=== PATIENT | female | born 1960 | race Caucasian/White ===

== ENCOUNTER 2016-03-10 14:16 | Inpatient (IN) | payer BC, OTHER ==
[~2016-03-10] VITALS: Ht 167.6 cm; Wt 82.2 kg
[~2016-03-10 14:16] MED LIST: ADVAIR HFA120 INHALA IH; AMBIEN CR12.5 MG PO; ANTIFUNGAL15 G1 TP; ASPIR 8181 M1 PO; ASPIR-LOW81 MG PO; AZITHROMYCIN250 MG1 PO; BENTYL10 MG PO; BUPROPION XL150 MG PO; CEFUROXIME500 MG PO; CENTRUM SILVER1 EAC4 PO; CLINDAMYCIN PHO60 GM TP; CLONAZEPAM1 MG PO; COCONUT OIL1000 MG PO; CRESTOR10 MG PO; CRESTOR40 MG PO; CYMBALTA20 MG PO; CYMBALTA60 MG PO; DESYREL100 MG PO; DEXILANT; DEXILANT60 MG PO; DILAUDID2 MG PO; DULCOLAX5 MG PO; DULOXETINE HCL; ECONAZOLE NITRA15 GM TP; ENDOCET 5-3251 EACH PO; ENSTILAR 0.005%60 GM TP; FLEXERIL5 MG PO; FLUCONAZOLE150 MG PO; FUROSEMIDE20 MG PO; GABAPENTIN600 MG PO; GLIPIZIDE ER2.5 M1 PO; GLIPIZIDE5 M1 PO; GLUCOPHAGE1000 MG PO; HUMALOG100 UNIT/2 SC; HYDROCODON-ACE1 EAC7 PO; INSULIN PUMP SCCONT; KAPIDEX60 MG PO; KENALOG,ARISTOC80 GM TP; KLONOPIN1 MG PO; LAMICTAL100 MG PO; LAMICTAL200 MG PO; LANTUS 3 M100 UNITS1 SC; LANTUS100 UNIT/1 SQ; LEVAQUIN750 MG PO; LINZESS145 MCG PO; LO-DOSE ASPIRIN81 M1 PO; LO-DOSE ASPIRIN81 M2 PO; LORCET PLUS 7.1 EACH PO; LUNESTA3 MG PO; LYRICA; LYRICA100 MG PO; LYRICA50 MG PO; MAGNESIUM400 M1 PO; MECLIZINE HCL25 MG PO; MEGESTROL ACETATE; METFORMIN HCL1000 MG PO; METOCLOPRAMIDE10 MG PO; METOPROLOL SUCC25 MG PO; METOPROLOL SUCC50 MG PO; MIRAPEX0.25 MG PO; MIRAPEX0.5 MG PO; MOBIC15 MG PO; MOBIC7.5 MG PO; MORPHINE SULFAT15 M1 PO; MORPHINE SULFAT15 MG PO; NABUMETONE500 MG PO; NEURONTIN300 MG PO; NEURONTIN600 MG PO; NOVOLOG PE100 UNITS/ SC; NOVOLOG100 UNIT/1 SQ; NUCYNTA75 MG PO; OMEGA-31000 M1 PO; OTEZLA30 MG PO; PERCOCET 5/31 TABLET PO; PRAMIPEXOLE D0.25 MG PO; PREDNISONE10 MG PO; REGLAN10 M1 PO; TIZANIDINE HCL; TIZANIDINE HCL2 MG PO; TOPROL XL50 MG PO; TRAZODONE HCL50 MG PO; TYLENOL REGULA325 MG PO; VENTOLIN HFA18 GM IH; VITAMIN B-12500 MC5 SL; VITAMIN D2000 UNIT PO; XANAX0.25 MG PO; XANAX1 MG PO; ZANAFLEX4 MG PO; ZESTORETIC,P1 TABLE1 PO; ZOFRAN4 MG PO; Zestoretic,Prinzide PO
[2016-03-10 14:40] LABS: CREATININE 0.7 mg/dL (0.6-1.3); POTASSIUM 4.6 mEq/L (3.7-5.4)
[2016-03-10 14:41] LABS: CARBOXY HGB 0.9 % (0-5); METHEMOGLOBIN 0.9 % (0-1.5); PCO2 19 mm Hg (35-45); PO2 92 mm Hg (80-100); SITE LR; pH < 6.91 (7.35-7.45)
[2016-03-10 14:42] LABS: COMMENTS - BLOOD GASES A+C+; DEVICE RA
[2016-03-10 14:48] LABS: MCHC 34.5 G/DL (30.0-36.0); MEAN PLAT.VOLUME 9.9 uM^3 (9.5-12.4); RBC DIS.WIDTH-CV 16.3 % (11.8-14.6); RBC DIS.WIDTH-SD 44.4 % (39-53); RED BLOOD COUNT 4.92 M/uL (3.80-5.20)
[2016-03-10 15:09] LABS: TROP-I INTERPRETATION NEGATIVE; TROPONIN-I 0.07 ng/mL (0.0-0.30)
[2016-03-10 15:41] LABS: MCV 81.3 FL (83-99); WHITE BLOOD COUNT 29.6 K/uL (4.1-10.2)
[2016-03-10 15:55] LABS: ABS NEUTROPHIL COUNT 25.12; ANISOCYTOSIS 1+; PLAT.SUFFICIENCY INCREASED; TOXIC GRANULATION 1+; USER ID NJV
[2016-03-10 15:57] LABS: DELETE MACHINE DIFF? YES; PLATELET CLUMPS PRESENT - PLATELET
[2016-03-10 16:04] LABS: CHLORIDE 105 mEq/L (99-109); POTASSIUM 4.7 mEq/L (3.7-5.4); SODIUM 132 mEq/L (136-147)
[2016-03-10 16:08] LABS: ANION GAP 23 MEQ/L (2-14); TOTAL BILIRUBIN 0.4 mg/dL (0.0-1.0)
[2016-03-10 16:10] LABS: ALKALINE PHOSPHATASE 205 IU/L (3-129); GFR ESTIMATE (CALCULATED) 39 mL/min/
[2016-03-10 16:11] LABS: UREA NITROGEN (BUN) 24 mg/dL (9-23)
[2016-03-10 16:13] LABS: LIPASE 38 U/L (1.0-51.0)
[2016-03-10 16:14] LABS: CREATINE KINASE 201 IU/L (1-294)
[2016-03-10 16:16] LABS: GLUCOSE 429 mg/dL (70-99)
[2016-03-10 16:17] LABS: CARBON DIOXIDE (BICARBONATE) < 10.0 mEq/L (20-31)
[2016-03-10 16:26] LABS: ADD MIUA? YES; BILIRUBIN SMALL; BLOOD LARGE; COLOR YELLOW ((YELLOW)); GLUCOSE (STRIP) >=1000; KETONES >=80; LEUKOCYTES SMALL; NITRITE NEGATIVE; PH, URINE 5.5 (5-8); PROTEIN (STRIP) 100; SPECIFIC GRAVITY 1.031 (1.000-1.030); UROBILINOGEN 0.2 MG/DL (0.2-1.0)
[2016-03-10] MEDS ORDERED: LUNESTA2 MG PO (16:50)
[2016-03-10] MEDS ORDERED: CLONAZEPAM0.5 MG PO (16:50)
[2016-03-10] MEDS ORDERED: OPANA ER10 MG PO (16:50)
[2016-03-10] MEDS ORDERED: OPANA IR5 MG PO (16:50)
[2016-03-10] MEDS ORDERED: OPANA IR10 MG PO (16:51)
[2016-03-10 16:52] LABS: BACTERIA 2+; EPITHELIAL CELLS 3+; MUCUS NONE SEEN; UCUL ADDED? YES; WHITE BLOOD CELLS 20-30 /HPF (0-5)
[2016-03-10 16:53] LABS: CASTS PRESENT /LPF; CRYSTALS NONE SEEN; FINE GRANULAR CASTS 0-5 /LPF; HYALINE CASTS 0-5 /LPF
[2016-03-10 17:33] LABS: POINT-OF-CARE METER ID UU13113702
[2016-03-10 18:28] LABS: POINT-OF-CARE METER ID UU13113702
[2016-03-10 19:30] VITALS: BP 124/63
[2016-03-10 19:30] LABS: POINT-OF-CARE METER ID UU13113702
[2016-03-10 20:00] VITALS: BP 127/65
[2016-03-10 20:50] LABS: VENOUS PCO2 38 mm Hg (41-51)
[2016-03-10 21:00] VITALS: BP 109/66
[2016-03-10 22:00] VITALS: BP 124/62
[2016-03-10 23:00] VITALS: BP 125/68
[2016-03-10 23:49] LABS: ANION GAP 19 MEQ/L (2-14)
[2016-03-10 23:52] LABS: GFR ESTIMATE (CALCULATED) 36 mL/min/
[2016-03-10 23:53] LABS: UREA NITROGEN (BUN) 34 mg/dL (9-23)
[2016-03-10 23:54] LABS: CHLORIDE 117 mEq/L (99-109); GLUCOSE 133 mg/dL (70-99); POTASSIUM 3.2 mEq/L (3.7-5.4); SODIUM 144 mEq/L (136-147)
[2016-03-11] VITALS (24 sets, daily range): BP systolic 73–140; BP diastolic 42–77
[2016-03-11 02:14] LABS: BASE EXCESS -13.9 mEq/L (-3 to +3); BICARBONATE 11.8 mEq/L (22-26); CARBOXY HGB 1.4 % (0-5); METHEMOGLOBIN 1.4 % (0-1.5)
[2016-03-11 02:15] LABS: COMMENTS - BLOOD GASES C+; DEVICE NC; O2 FLOW 2 L/MIN; PCO2 27 mm Hg (35-45); PO2 60 mm Hg (80-100); SITE ALINE; pH 7.25 (7.35-7.45)
[2016-03-11 02:23] LABS: HEMATOCRIT 33.8 % (36.0-46.0); MCH 28.1 PG (29.0-34.0); MCHC 36.1 G/DL (30.0-36.0); MCV 77.9 FL (83-99); MEAN PLAT.VOLUME 9.3 uM^3 (9.5-12.4); PLATELET COUNT 304 K/uL (156-360); RBC DIS.WIDTH-CV 15.9 % (11.8-14.6); RBC DIS.WIDTH-SD 41.3 % (39-53); RED BLOOD COUNT 4.34 M/uL (3.80-5.20)
[2016-03-11 02:24] LABS: WHITE BLOOD COUNT 16.5 K/uL (4.1-10.2)
[2016-03-11 02:35] LABS: CHLORIDE 115 mEq/L (99-109); POTASSIUM 3.2 mEq/L (3.7-5.4); SODIUM 143 mEq/L (136-147)
[2016-03-11 02:36] LABS: MAGNESIUM 1.5 mg/dL (1.3-2.7)
[2016-03-11 02:39] LABS: ANION GAP 19 MEQ/L (2-14)
[2016-03-11 02:41] LABS: ALKALINE PHOSPHATASE 167 IU/L (3-129)
[2016-03-11 02:42] LABS: GFR ESTIMATE (CALCULATED) 31 mL/min/
[2016-03-11 02:43] LABS: DIRECT BILIRUBIN 0.3 mg/dL (0.0-0.3); INTER. NORMALIZED RATIO 1.2; PROTHROMBIN TIME 12.1 (9.2-11.2); PTT 32.9 (25-32); UREA NITROGEN (BUN) 36 mg/dL (9-23)
[2016-03-11 02:44] LABS: TROP-I INTERPRETATION POSITIVE
[2016-03-11 02:48] LABS: TROPONIN-I 1.61 ng/mL (0.0-0.30)
[2016-03-11 02:50] LABS: GLUCOSE 221 mg/dL (70-99)
[2016-03-11 02:51] LABS: CREATINE KINASE 506 IU/L (1-294); TOTAL BILIRUBIN 0.5 mg/dL (0.0-1.0)
[2016-03-11 04:56] LABS: COMMENTS - BLOOD GASES C+; DEVICE NC; O2 FLOW 2 L/MIN; PCO2 28 mm Hg (35-45); PO2 83 mm Hg (80-100); SITE ALINE; TOTAL RESP RATE 30 resp/min; pH 7.31 (7.35-7.45)
[2016-03-11 04:57] LABS: BASE EXCESS -10.7 mEq/L (-3 to +3); BICARBONATE 14.1 mEq/L (22-26); CARBOXY HGB 1.5 % (0-5); HEMOGLOBIN 12.3 (11.9-15.5); METHEMOGLOBIN 1.3 % (0-1.5)
[2016-03-11 05:18] LABS: HEMATOCRIT 34.8 % (36.0-46.0); MCH 28.5 PG (29.0-34.0); MCHC 35.6 G/DL (30.0-36.0); MEAN PLAT.VOLUME 9.6 uM^3 (9.5-12.4); PLATELET COUNT 265 K/uL (156-360); RBC DIS.WIDTH-CV 15.8 % (11.8-14.6); RBC DIS.WIDTH-SD 44.1 % (39-53); RED BLOOD COUNT 4.35 M/uL (3.80-5.20); WHITE BLOOD COUNT 13.1 K/uL (4.1-10.2)
[2016-03-11 05:29] LABS: TROP-I INTERPRETATION POSITIVE
[2016-03-11 05:59] LABS: TROPONIN-I 1.66 ng/mL (0.0-0.30)
[2016-03-11 06:39] LABS: ANION GAP 20 MEQ/L (2-14); CHLORIDE 112 MEQ/L (99-109); GFR ESTIMATE (CALCULATED) 33 mL/min/; GLUCOSE 209 mg/dL (70-99); MAGNESIUM 2.3 mg/dl (1.3-2.7); POTASSIUM 3.3 MEQ/L (3.7-5.4); SAMPLE HEMOLYSIS CHECK 0; SAMPLE ICTERIC CHECK 0; SAMPLE LIPEMIA CHECK 0; SODIUM 144 MEQ/L (136-147); UREA NITROGEN (BUN) 38 mg/dL (9-23)
[2016-03-11 10:47] LABS: TROP-I INTERPRETATION POSITIVE
[2016-03-11 10:49] LABS: TROPONIN-I 1.89 ng/mL (0.0-0.30)
[2016-03-11 10:54] LABS: ANION GAP 17 MEQ/L (2-14); CHLORIDE 114 MEQ/L (99-109); CREATINE KINASE 465 IU/L (1-294); GFR ESTIMATE (CALCULATED) 29 mL/min/; GLUCOSE 192 mg/dL (70-99); MAGNESIUM 2.2 mg/dl (1.3-2.7); SAMPLE HEMOLYSIS CHECK 0; SAMPLE ICTERIC CHECK 0; SAMPLE LIPEMIA CHECK 0; SODIUM 148 MEQ/L (136-147); TOTAL CK 465 IU/L (1-294); UREA NITROGEN (BUN) 38 mg/dL (9-23)
[2016-03-11 11:23] LABS: BASE EXCESS -4.1 mEq/L (-3 to +3); BICARBONATE 19.2 mEq/L (22-26); CARBOXY HGB 0.9 % (0-5); METHEMOGLOBIN 0.9 % (0-1.5); PCO2 29 mm Hg (35-45); PO2 98 mm Hg (80-100); SITE A LINE; pH 7.43 (7.35-7.45)
[2016-03-11 11:24] LABS: COMMENTS - BLOOD GASES C+; DEVICE NC; O2 FLOW 2 L/MIN; TOTAL RESP RATE 24 resp/min
[2016-03-11 11:31] LABS: CK-MB 9.5 ng/mL (0.0-4.9)
[2016-03-11 14:28] LABS: ANION GAP 14 MEQ/L (2-14); CHLORIDE 115 MEQ/L (99-109); GFR ESTIMATE (CALCULATED) 26 mL/min/; GLUCOSE 133 mg/dL (70-99); MAGNESIUM 2.1 mg/dl (1.3-2.7); POTASSIUM 3.8 MEQ/L (3.7-5.4); SAMPLE HEMOLYSIS CHECK 0; SAMPLE ICTERIC CHECK 0; SAMPLE LIPEMIA CHECK 0; SODIUM 148 MEQ/L (136-147); UREA NITROGEN (BUN) 38 mg/dL (9-23)
[2016-03-11 14:29] LABS: TROP-I INTERPRETATION POSITIVE
[2016-03-11 14:30] LABS: TROPONIN-I 2.22 ng/mL (0.0-0.30)
[2016-03-11 16:06] LABS: INTER. NORMALIZED RATIO 1.2; PROTHROMBIN TIME 12.3 (9.2-11.2); PTT 30.6 (25-32)
[2016-03-11 17:58] LABS: POINT-OF-CARE METER ID UU13113731
[2016-03-11 18:47] LABS: POINT-OF-CARE METER ID UU13113731
[2016-03-11 18:52] LABS: ANION GAP 13 MEQ/L (2-14); CHLORIDE 116 MEQ/L (99-109); CREATINE KINASE 403 IU/L (1-294); GFR ESTIMATE (CALCULATED) 24 mL/min/; GLUCOSE 190 mg/dL (70-99); SAMPLE HEMOLYSIS CHECK 0; SAMPLE ICTERIC CHECK 0; SAMPLE LIPEMIA CHECK 0; SODIUM 147 MEQ/L (136-147); TOTAL CK 403 IU/L (1-294); UREA NITROGEN (BUN) 37 mg/dL (9-23)
[2016-03-11 18:57] LABS: TROP-I INTERPRETATION POSITIVE
[2016-03-11 19:21] LABS: TROPONIN-I 2.05 ng/mL (0.0-0.30)
[2016-03-11 21:22] LABS: POINT-OF-CARE METER ID UU13113731
[2016-03-11 22:24] LABS: POINT-OF-CARE METER ID UU13113731
[2016-03-11 22:24] LABS: ANION GAP 14 MEQ/L (2-14); CHLORIDE 115 MEQ/L (99-109); SAMPLE HEMOLYSIS CHECK 0; SAMPLE ICTERIC CHECK 0; SAMPLE LIPEMIA CHECK 0; SODIUM 146 MEQ/L (136-147)
[2016-03-11 22:29] LABS: GFR ESTIMATE (CALCULATED) 22 mL/min/; GLUCOSE 165 mg/dL (70-99); UREA NITROGEN (BUN) 37 mg/dL (9-23)
[2016-03-11 22:32] LABS: TROP-I INTERPRETATION POSITIVE
[2016-03-11 22:55] LABS: TROPONIN-I 1.89 ng/mL (0.0-0.30)
[2016-03-11 23:25] LABS: POC NON-PRINT COM 1 ND
[2016-03-11 23:26] LABS: POINT-OF-CARE METER ID UU13113731
[2016-03-12] VITALS (20 sets, daily range): BP systolic 96–163; BP diastolic 48–146
[2016-03-12 00:23] LABS: POINT-OF-CARE METER ID UU13113731
[2016-03-12 01:23] LABS: POINT-OF-CARE METER ID UU13113731
[2016-03-12 01:59] LABS: CHLORIDE 117 mEq/L (99-109); POTASSIUM 3.5 mEq/L (3.7-5.4); SODIUM 146 mEq/L (136-147)
[2016-03-12 02:01] LABS: GLUCOSE 205 mg/dL (70-99)
[2016-03-12 02:03] LABS: ANION GAP 14 MEQ/L (2-14)
[2016-03-12 02:05] LABS: GFR ESTIMATE (CALCULATED) 19 mL/min/
[2016-03-12 02:06] LABS: CREATINE KINASE 517 IU/L (1-294); TOTAL CK 517 IU/L (1-294); UREA NITROGEN (BUN) 38 mg/dL (9-23)
[2016-03-12 02:10] LABS: TROP-I INTERPRETATION POSITIVE
[2016-03-12 02:13] LABS: CK-MB 7.5 ng/mL (0.0-4.9)
[2016-03-12 02:15] LABS: MAGNESIUM 1.9 mg/dL (1.3-2.7)
[2016-03-12 02:17] LABS: TROPONIN-I 1.95 ng/mL (0.0-0.30)
[2016-03-12 02:22] LABS: POINT-OF-CARE METER ID UU13113748
[2016-03-12 04:20] LABS: POINT-OF-CARE METER ID UU13113748
[2016-03-12 04:26] LABS: HEMATOCRIT 30.4 % (36.0-46.0); MCHC 36.5 G/DL (30.0-36.0); MCV 76.8 FL (83-99); MEAN PLAT.VOLUME 9.1 uM^3 (9.5-12.4); PLATELET COUNT 243 K/uL (156-360); RBC DIS.WIDTH-CV 16.7 % (11.8-14.6); RBC DIS.WIDTH-SD 42.4 % (39-53); RED BLOOD COUNT 3.96 M/uL (3.80-5.20); WHITE BLOOD COUNT 12.1 K/uL (4.1-10.2)
[2016-03-12 04:34] LABS: CHLORIDE 118 mEq/L (99-109); POTASSIUM 3.3 mEq/L (3.7-5.4); SODIUM 149 mEq/L (136-147)
[2016-03-12 04:35] LABS: MAGNESIUM 1.8 mg/dL (1.3-2.7)
[2016-03-12 04:36] LABS: CHLORIDE 119 mEq/L (99-109); GLUCOSE 191 mg/dL (70-99); POTASSIUM 3.3 mEq/L (3.7-5.4); SODIUM 148 mEq/L (136-147)
[2016-03-12 04:37] LABS: MAGNESIUM 1.8 mg/dL (1.3-2.7)
[2016-03-12 04:38] LABS: ANION GAP 17 MEQ/L (2-14); GLUCOSE 194 mg/dL (70-99)
[2016-03-12 04:39] LABS: ANION GAP 13 MEQ/L (2-14)
[2016-03-12 04:40] LABS: GFR ESTIMATE (CALCULATED) 18 mL/min/
[2016-03-12 04:41] LABS: UREA NITROGEN (BUN) 38 mg/dL (9-23)
[2016-03-12 04:42] LABS: GFR ESTIMATE (CALCULATED) 18 mL/min/
[2016-03-12 04:43] LABS: UREA NITROGEN (BUN) 38 mg/dL (9-23)
[2016-03-12 05:21] LABS: METH RESISTANT S AUREUS PCR NEGATIVE (NEGATIVE)
[2016-03-12 05:34] LABS: PROBE CHECK PASS; SPECIMEN PROCESSING CONTROL PASS
[2016-03-12 06:11] LABS: POINT-OF-CARE METER ID UU13113748
[2016-03-12 08:24] LABS: POINT-OF-CARE METER ID UU13113731
[2016-03-12 09:14] LABS: POINT-OF-CARE METER ID UU13113731
[2016-03-12 10:41] LABS: POINT-OF-CARE METER ID UU13113731
[2016-03-12 11:42] LABS: ANION GAP 19 MEQ/L (2-14); CHLORIDE 114 MEQ/L (99-109); GFR ESTIMATE (CALCULATED) 19 mL/min/; GLUCOSE 218 mg/dL (70-99); POTASSIUM 3.7 MEQ/L (3.7-5.4); SAMPLE HEMOLYSIS CHECK 0; SAMPLE ICTERIC CHECK 0; SAMPLE LIPEMIA CHECK 0; SODIUM 147 MEQ/L (136-147); UREA NITROGEN (BUN) 34 mg/dL (9-23)
[2016-03-12 11:44] LABS: POINT-OF-CARE METER ID UU13113731
[2016-03-12 12:27] LABS: ALKALINE PHOSPHATASE 135 IU/L (3-129); DIRECT BILIRUBIN 0.1 mg/dL (0.0-0.3); TOTAL BILIRUBIN 0.5 MG/DL (0.0-1.0)
[2016-03-12 13:02] LABS: POINT-OF-CARE METER ID UU13113731
[2016-03-12 14:10] LABS: POINT-OF-CARE METER ID UU13113731
[2016-03-12 14:26] LABS: ANION GAP 14 MEQ/L (2-14); CHLORIDE 117 MEQ/L (99-109); GFR ESTIMATE (CALCULATED) 18 mL/min/; GLUCOSE 239 mg/dL (70-99); MAGNESIUM 1.8 mg/dl (1.3-2.7); POTASSIUM 3.4 MEQ/L (3.7-5.4); SAMPLE HEMOLYSIS CHECK 0; SAMPLE ICTERIC CHECK 0; SAMPLE LIPEMIA CHECK 0; SODIUM 146 MEQ/L (136-147); UREA NITROGEN (BUN) 36 mg/dL (9-23)
[2016-03-12 14:57] LABS: POINT-OF-CARE METER ID UU13113731
[2016-03-12 16:15] LABS: POINT-OF-CARE METER ID UU13113731
[2016-03-12 16:34] LABS: UR CREATININE CONCENTRATION 48.3 MG/DL
[2016-03-12 17:24] LABS: POINT-OF-CARE METER ID UU13113731
[2016-03-12 18:18] LABS: ANION GAP 13 MEQ/L (2-14); CHLORIDE 115 MEQ/L (99-109); GFR ESTIMATE (CALCULATED) 18 mL/min/; GLUCOSE 165 mg/dL (70-99); POTASSIUM 2.9 MEQ/L (3.7-5.4); SAMPLE HEMOLYSIS CHECK 0; SAMPLE ICTERIC CHECK 0; SAMPLE LIPEMIA CHECK 0; SODIUM 144 MEQ/L (136-147); UREA NITROGEN (BUN) 34 mg/dL (9-23)
[2016-03-12 18:26] LABS: POINT-OF-CARE METER ID UU13113731
[2016-03-12 18:28] LABS: MAGNESIUM 2.4 mg/dl (1.3-2.7)
[2016-03-12 18:44] LABS: Estimated Average Glucose 301 mg/dL (70-123); HEMOGLOBIN A1c (GLYCOHEMOGLOB) 12.1 % HGB (Below 5.7)
[2016-03-12 19:50] LABS: POINT-OF-CARE METER ID UU13113731
[2016-03-12 20:51] LABS: POINT-OF-CARE METER ID UU13113731
[2016-03-12 21:40] LABS: POINT-OF-CARE METER ID UU13113731
[2016-03-12 22:42] LABS: POINT-OF-CARE METER ID UU13113731
[2016-03-12 23:32] LABS: POINT-OF-CARE METER ID UU13113731
[2016-03-13] VITALS (23 sets, daily range): BP systolic 107–160; BP diastolic 58–111
[2016-03-13 00:22] LABS: CHLORIDE 116 mEq/L (99-109); SODIUM 144 mEq/L (136-147)
[2016-03-13 00:25] LABS: GLUCOSE 291 mg/dL (70-99); POTASSIUM 3.7 mEq/L (3.7-5.4)
[2016-03-13 00:26] LABS: ANION GAP 15 MEQ/L (2-14)
[2016-03-13 00:28] LABS: GFR ESTIMATE (CALCULATED) 17 mL/min/
[2016-03-13 00:29] LABS: UREA NITROGEN (BUN) 34 mg/dL (9-23)
[2016-03-13 00:31] LABS: POINT-OF-CARE METER ID UU13113731
[2016-03-13 01:33] LABS: POINT-OF-CARE METER ID UU13113731
[2016-03-13 02:17] LABS: POINT-OF-CARE METER ID UU14162636
[2016-03-13 03:10] LABS: POINT-OF-CARE METER ID UU14162636
[2016-03-13 04:07] LABS: POINT-OF-CARE METER ID UU14162636
[2016-03-13 04:47] LABS: HEMATOCRIT 27.4 % (36.0-46.0); MCH 27.7 PG (29.0-34.0); MCHC 35.8 G/DL (30.0-36.0); MCV 77.4 FL (83-99); MEAN PLAT.VOLUME 9.5 uM^3 (9.5-12.4); PLATELET COUNT 196 K/uL (156-360); RBC DIS.WIDTH-CV 16.8 % (11.8-14.6); RBC DIS.WIDTH-SD 43.5 % (39-53); RED BLOOD COUNT 3.54 M/uL (3.80-5.20); WHITE BLOOD COUNT 7.4 K/uL (4.1-10.2)
[2016-03-13 04:52] LABS: CHLORIDE 119 mEq/L (99-109); SODIUM 147 mEq/L (136-147)
[2016-03-13 04:53] LABS: GLUCOSE 181 mg/dL (70-99)
[2016-03-13 04:55] LABS: ANION GAP 13 MEQ/L (2-14)
[2016-03-13 04:57] LABS: GFR ESTIMATE (CALCULATED) 16 mL/min/
[2016-03-13 04:58] LABS: UREA NITROGEN (BUN) 34 mg/dL (9-23)
[2016-03-13 05:02] LABS: POTASSIUM 2.9 mEq/L (3.7-5.4)
[2016-03-13 05:03] LABS: POINT-OF-CARE METER ID UU14162636
[2016-03-13 05:04] LABS: TROP-I INTERPRETATION POSITIVE
[2016-03-13 05:10] LABS: TROPONIN-I 0.79 ng/mL (0.0-0.30)
[2016-03-13 06:00] LABS: POINT-OF-CARE METER ID UU14162636
[2016-03-13 06:26] LABS: POINT-OF-CARE METER ID UU14162636
[2016-03-13 07:23] LABS: POINT-OF-CARE METER ID UU14162636
[2016-03-13 08:06] LABS: POINT-OF-CARE METER ID UU14162636
[2016-03-13 08:53] LABS: ANION GAP 14 MEQ/L (2-14); CHLORIDE 116 MEQ/L (99-109); GFR ESTIMATE (CALCULATED) 17 mL/min/; GLUCOSE 244 mg/dL (70-99); SAMPLE HEMOLYSIS CHECK 0; SAMPLE ICTERIC CHECK 0; SAMPLE LIPEMIA CHECK 0; SODIUM 146 MEQ/L (136-147); UREA NITROGEN (BUN) 33 mg/dL (9-23)
[2016-03-13 08:58] LABS: POINT-OF-CARE METER ID UU14162636
[2016-03-13 09:04] LABS: POTASSIUM 3.7 MEQ/L (3.7-5.4)
[2016-03-13 09:51] LABS: POINT-OF-CARE METER ID UU14162636
[2016-03-13 10:48] LABS: POINT-OF-CARE METER ID UU14162636
[2016-03-13 11:40] LABS: POINT-OF-CARE METER ID UU14162636
[2016-03-13 12:36] LABS: POINT-OF-CARE METER ID UU14162636
[2016-03-13 13:29] LABS: POINT-OF-CARE METER ID UU14162636
[2016-03-13 14:44] LABS: POINT-OF-CARE METER ID UU14174217
[2016-03-13 15:06] LABS: POINT-OF-CARE METER ID UU14174217
[2016-03-13 15:22] LABS: MAGNESIUM 2.1 mg/dl (1.3-2.7)
[2016-03-13 16:13] LABS: POINT-OF-CARE METER ID UU14162636
[2016-03-13 17:20] LABS: POINT-OF-CARE METER ID UU14174217
[2016-03-13 18:28] LABS: POINT-OF-CARE METER ID UU14174217; POINT-OF-CARE USER ID 606021424
[2016-03-13 19:18] LABS: POINT-OF-CARE METER ID UU14174217
[2016-03-13 20:47] LABS: POINT-OF-CARE METER ID UU14162636
[2016-03-13 21:57] LABS: POINT-OF-CARE METER ID UU14174217; POINT-OF-CARE USER ID LABHNS84
[2016-03-14] VITALS (9 sets, daily range): BP systolic 92–156; BP diastolic 43–80
[2016-03-14 05:58] LABS: HEMATOCRIT 28.4 % (36.0-46.0); MCH 27.3 PG (29.0-34.0); MCHC 34.9 G/DL (30.0-36.0); MCV 78.5 FL (83-99); MEAN PLAT.VOLUME 9.6 uM^3 (9.5-12.4); PLATELET COUNT 188 K/uL (156-360); RBC DIS.WIDTH-SD 47.5 % (39-53); RED BLOOD COUNT 3.62 M/uL (3.80-5.20); WHITE BLOOD COUNT 7.2 K/uL (4.1-10.2)
[2016-03-14 10:09] LABS: ANION GAP 14 MEQ/L (2-14); CHLORIDE 118 MEQ/L (99-109); POTASSIUM 3.4 MEQ/L (3.7-5.4); SAMPLE HEMOLYSIS CHECK 0; SAMPLE ICTERIC CHECK 0; SAMPLE LIPEMIA CHECK 0; SODIUM 150 MEQ/L (136-147)
[2016-03-14 10:15] LABS: GFR ESTIMATE (CALCULATED) 16 mL/min/; GLUCOSE 187 mg/dL (70-99); UREA NITROGEN (BUN) 34 mg/dL (9-23)
[2016-03-14 19:27] LABS: POINT-OF-CARE METER ID UU13113725
[2016-03-15 03:07] VITALS: BP 119/62
[2016-03-15 05:46] LABS: POINT-OF-CARE METER ID UU13113725
[2016-03-15 07:46] LABS: HEMATOCRIT 29.4 % (36.0-46.0); MCH 27.7 PG (29.0-34.0); MCHC 34.4 G/DL (30.0-36.0); MCV 80.8 FL (83-99); PLATELET COUNT 214 K/uL (156-360); RBC DIS.WIDTH-CV 17.6 % (11.8-14.6); RBC DIS.WIDTH-SD 49.8 % (39-53); RED BLOOD COUNT 3.64 M/uL (3.80-5.20); WHITE BLOOD COUNT 6.2 K/uL (4.1-10.2)
[2016-03-15 07:50] VITALS: BP 138/72
[2016-03-15 08:06] LABS: EOSINOPHIL (%) 3.4 % (0-5); EOSINOPHIL COUNT 0.2 K/uL (0-0.3); IMMATURE GRANULOCYTE (%) 0.6 % (0.0-0.7); LYMPHOCYTE COUNT 1.9 K/uL (1.0-2.8); MONOCYTE (%) 13.5 % (3-12); MONOCYTE COUNT 0.8 K/uL (0-0.8); NEUTROPHIL COUNT 3.2 K/uL (1.8-6.4)
[2016-03-15 08:14] LABS: C3 COMPLEMENT 116 MG/DL (58-170); C4 COMPLEMENT 39 MG/DL (10-40)
[2016-03-15 08:31] LABS: ALKALINE PHOSPHATASE 127 IU/L (3-129); ANION GAP 13 MEQ/L (2-14); ANION GAP 14 MEQ/L (2-14); CHLORIDE 113 MEQ/L (99-109); CHLORIDE 114 MEQ/L (99-109); GFR ESTIMATE (CALCULATED) 16 mL/min/; GFR ESTIMATE (CALCULATED) 17 mL/min/; MAGNESIUM 1.8 mg/dl (1.3-2.7); POTASSIUM 3.3 MEQ/L (3.7-5.4); POTASSIUM 3.4 MEQ/L (3.7-5.4); SAMPLE HEMOLYSIS CHECK 0; SAMPLE ICTERIC CHECK 0; SAMPLE LIPEMIA CHECK 0; SODIUM 148 MEQ/L (136-147); TOTAL BILIRUBIN 0.6 MG/DL (0.0-1.0); UREA NITROGEN (BUN) 36 mg/dL (9-23); UREA NITROGEN (BUN) 37 mg/dL (9-23); URIC ACID 7.9 mg/dL (3.1-9.2)
[2016-03-15 08:32] LABS: GLUCOSE 103 mg/dL (70-99); GLUCOSE 104 mg/dL (70-99)
[2016-03-15 10:37] LABS: HBSG INDEX 0.23; HPCA INDEX 0.08
[2016-03-15 10:38] LABS: ANTI-HEPATITIS A VIRUS (IGM) Nonreactive; HAV INDEX 0.15
[2016-03-15 10:39] LABS: ANTI-HEPATITIS B CORE (IGM) Nonreactive
[2016-03-15 11:11] VITALS: BP 129/61
[2016-03-15 11:13] LABS: POINT-OF-CARE METER ID UU13113725
[2016-03-15 14:27] LABS: ADD MIUA? YES; BILIRUBIN NEGATIVE; BLOOD MODERATE; COLOR YELLOW ((YELLOW)); GLUCOSE (STRIP) 100; KETONES NEGATIVE; LEUKOCYTES NEGATIVE; NITRITE NEGATIVE; PROTEIN (STRIP) TRACE; SPECIFIC GRAVITY 1.007 (1.000-1.030); UROBILINOGEN 0.2 MG/DL (0.2-1.0)
[2016-03-15 14:31] LABS: BACTERIA NONE SEEN; CASTS NONE SEEN /LPF; CRYSTALS NONE SEEN; EPITHELIAL CELLS RARE; MUCUS NONE SEEN; PATHOLOGICAL CAST NONE SEEN; RED BLOOD CELLS 0-5 /HPF (0-5); SMALL ROUND CELL NONE SEEN; WHITE BLOOD CELLS 0-5 /HPF (0-5); YEAST-LIKE CELL NONE SEEN
[2016-03-15 14:55] LABS: UR CREATININE CONCENTRATION 27.3 MG/DL
[2016-03-15 15:53] VITALS: BP 135/80
[2016-03-15 15:58] LABS: POINT-OF-CARE METER ID UU13113725
[2016-03-15 19:14] VITALS: BP 136/70
[2016-03-15 21:00] LABS: POINT-OF-CARE METER ID UU13113717
[2016-03-16] VITALS (7 sets, daily range): BP systolic 118–190; BP diastolic 59–85
[2016-03-16 05:59] LABS: POINT-OF-CARE METER ID UU13113717
[2016-03-16 06:23] LABS: HEMATOCRIT 33.6 % (36.0-46.0); MCH 27.9 PG (29.0-34.0); MCHC 33.6 G/DL (30.0-36.0); MEAN PLAT.VOLUME 10.4 uM^3 (9.5-12.4); PLATELET COUNT 224 K/uL (156-360); RBC DIS.WIDTH-CV 17.8 % (11.8-14.6); RBC DIS.WIDTH-SD 51.6 % (39-53); RED BLOOD COUNT 4.05 M/uL (3.80-5.20); WHITE BLOOD COUNT 7.1 K/uL (4.1-10.2)
[2016-03-16 07:16] LABS: EOSINOPHIL (%) 2.7 % (0-5); EOSINOPHIL COUNT 0.2 K/uL (0-0.3); HEMATOLOGY COMMENT 1 SMEAR COMPATIBLE; IMMATURE GRANULOCYTE (%) 0.6 % (0.0-0.7); LYMPHOCYTE COUNT 2.4 K/uL (1.0-2.8); MONOCYTE COUNT 0.9 K/uL (0-0.8); NEUTROPHIL (%) 49.5 % (45-76); NEUTROPHIL COUNT 3.5 K/uL (1.8-6.4); PLAT.SUFFICIENCY ADEQUATE; USER ID TLW
[2016-03-16 07:58] LABS: ANION GAP 16 MEQ/L (2-14); CHLORIDE 114 MEQ/L (99-109); GFR ESTIMATE (CALCULATED) 17 mL/min/; GLUCOSE 111 mg/dL (70-99); MAGNESIUM 1.7 mg/dl (1.3-2.7); POTASSIUM 3.7 MEQ/L (3.7-5.4); SAMPLE HEMOLYSIS CHECK 0; SAMPLE ICTERIC CHECK 0; SAMPLE LIPEMIA CHECK 0; SODIUM 148 MEQ/L (136-147); UREA NITROGEN (BUN) 35 mg/dL (9-23)
[2016-03-16 12:09] LABS: POINT-OF-CARE METER ID UU13113717
[2016-03-16 16:23] LABS: POINT-OF-CARE METER ID UU13113717
[2016-03-16 22:20] LABS: POINT-OF-CARE METER ID UU13113717
[2016-03-17 04:03] VITALS: BP 153/72
[2016-03-17 06:08] LABS: POINT-OF-CARE METER ID UU13113717
[2016-03-17 07:51] LABS: HEMATOCRIT 34.5 % (36.0-46.0); MCH 27.8 PG (29.0-34.0); MCHC 33.6 G/DL (30.0-36.0); MCV 82.5 FL (83-99); MEAN PLAT.VOLUME 9.9 uM^3 (9.5-12.4); PLATELET COUNT 255 K/uL (156-360); RBC DIS.WIDTH-CV 17.8 % (11.8-14.6); RBC DIS.WIDTH-SD 50.2 % (39-53); RED BLOOD COUNT 4.18 M/uL (3.80-5.20); WHITE BLOOD COUNT 7.5 K/uL (4.1-10.2)
[2016-03-17 08:11] LABS: EOSINOPHIL (%) 2.7 % (0-5); EOSINOPHIL COUNT 0.2 K/uL (0-0.3); IMMATURE GRANULOCYTE (%) 1.1 % (0.0-0.7); IMMATURE GRANULOCYTE COUNT 0.1 K/uL; LYMPHOCYTE COUNT 2.3 K/uL (1.0-2.8); MONOCYTE (%) 14.6 % (3-12); MONOCYTE COUNT 1.1 K/uL (0-0.8); NEUTROPHIL (%) 50.7 % (45-76); NEUTROPHIL COUNT 3.8 K/uL (1.8-6.4)
[2016-03-17 08:13] VITALS: BP 139/63
[2016-03-17 08:20] LABS: ANION GAP 16 MEQ/L (2-14); CHLORIDE 110 MEQ/L (99-109); MAGNESIUM 1.6 mg/dl (1.3-2.7); POTASSIUM 3.6 MEQ/L (3.7-5.4); SAMPLE HEMOLYSIS CHECK 0; SAMPLE ICTERIC CHECK 0; SAMPLE LIPEMIA CHECK 0; SODIUM 147 MEQ/L (136-147)
[2016-03-17 08:25] LABS: GFR ESTIMATE (CALCULATED) 18 mL/min/; GLUCOSE 122 mg/dL (70-99); UREA NITROGEN (BUN) 29 mg/dL (9-23)
[2016-03-17 11:27] LABS: POINT-OF-CARE METER ID UU13113725
[2016-03-17 11:40] VITALS: BP 124/58
[2016-03-17 16:03] VITALS: BP 139/65
[2016-03-17 16:03] LABS: POINT-OF-CARE METER ID UU13113725
[2016-03-18 00:22] VITALS: BP 160/76
[2016-03-18 06:45] LABS: POINT-OF-CARE METER ID UU13113725
[2016-03-18 08:36] VITALS: BP 138/65
[2016-03-18 12:03] LABS: ANION GAP 13 MEQ/L (2-14); CHLORIDE 111 MEQ/L (99-109); POTASSIUM 3.7 MEQ/L (3.7-5.4); SAMPLE HEMOLYSIS CHECK 1; SAMPLE ICTERIC CHECK 0; SAMPLE LIPEMIA CHECK 0; SODIUM 145 MEQ/L (136-147)
[2016-03-18 12:08] LABS: GFR ESTIMATE (CALCULATED) 21 mL/min/; GLUCOSE 180 mg/dL (70-99); UREA NITROGEN (BUN) 25 mg/dL (9-23)
[2016-03-18 16:23] LABS: POINT-OF-CARE METER ID UU13113725
[2016-03-18 16:27] VITALS: BP 137/66
[2016-03-18 20:48] LABS: POINT-OF-CARE METER ID UU13113725
[2016-03-18 22:34] VITALS: BP 154/85
[2016-03-19 03:57] LABS: POINT-OF-CARE METER ID UU13113717
[2016-03-19 06:08] LABS: HEMATOCRIT 32.8 % (36.0-46.0); MCH 28.5 PG (29.0-34.0); MCHC 33.8 G/DL (30.0-36.0); MCV 84.3 FL (83-99); MEAN PLAT.VOLUME 10.4 uM^3 (9.5-12.4); PLATELET COUNT 257 K/uL (156-360); RBC DIS.WIDTH-CV 17.8 % (11.8-14.6); RBC DIS.WIDTH-SD 50.9 % (39-53); RED BLOOD COUNT 3.89 M/uL (3.80-5.20); WHITE BLOOD COUNT 5.9 K/uL (4.1-10.2)
[2016-03-19 07:25] LABS: POINT-OF-CARE METER ID UU13113717
[2016-03-19 07:58] VITALS: BP 153/86
[2016-03-19 11:21] LABS: ANION GAP 13 MEQ/L (2-14); CHLORIDE 111 MEQ/L (99-109); GFR ESTIMATE (CALCULATED) 25 mL/min/; POTASSIUM 3.4 MEQ/L (3.7-5.4); SAMPLE HEMOLYSIS CHECK 0; SAMPLE ICTERIC CHECK 0; SAMPLE LIPEMIA CHECK 0; SODIUM 149 MEQ/L (136-147); UREA NITROGEN (BUN) 20 mg/dL (9-23)
[2016-03-19] MEDS ORDERED: NOVOLOG PE100 UNITS/ SC ×2 (11:22→11:23)
[2016-03-19] MEDS ORDERED: LEVEMIR100 UNIT/2 SC (11:23)
[2016-03-19 11:24] LABS: GLUCOSE 112 mg/dL (70-99)
[2016-03-19 12:04] LABS: POINT-OF-CARE METER ID UU13113717
[2016-03-19 14:32] LABS: Neutrophil Cytoplasmic Aby Negative (Negative)
[2016-03-19] MEDS ORDERED: KETOCONAZOLE60 GM TP (14:35)
[2016-03-19] MEDS ORDERED: NIZORAL 2% CREA15 GM TP (14:45)
[2016-03-20 19:29] LABS: GLOMERULAR BASEMENT MEMB ABY+ <1.0 AI (<1.0)
== END 2016-03-19 15:59 | disposition home health service (06) | DRG 871 ==
LOC: EME 14:16 → 5EAST 17:32 → 4WEST 17:32 → EDOF 17:32 → 4WEST 19:39 → 5EAST 03-14 17:13
PROVIDERS: Emergency Medicine; Internal Medicine; Internal Medicine Critical Care Medicine; Internal Medicine Nephrology
DX: A41.9 Sepsis, unspecified organism (principal); E13.10 Other specified diabetes mellitus with ketoacidosis without coma; T38.3X6A Underdosing of insulin and oral hypoglycemic [antidiabetic] drugs, initial encounter; G93.40 Encephalopathy, unspecified; N17.0 Acute kidney failure with tubular necrosis; N39.0 Urinary tract infection, site not specified; E87.0 Hyperosmolality and hypernatremia; E87.6 Hypokalemia; E83.42 Hypomagnesemia; I27.2 Other secondary pulmonary hypertension; F32.9 Major depressive disorder, single episode, unspecified; F41.9 Anxiety disorder, unspecified; E78.5 Hyperlipidemia, unspecified; K21.9 Gastro-esophageal reflux disease without esophagitis; E11.43 Type 2 diabetes mellitus with diabetic autonomic (poly)neuropathy; J45.909 Unspecified asthma, uncomplicated; H91.3 Deaf nonspeaking, not elsewhere classified; Z91.19 Patient's noncompliance with other medical treatment and regimen; L40.9 Psoriasis, unspecified; E66.9 Obesity, unspecified; I95.9 Hypotension, unspecified; R74.8 Abnormal levels of other serum enzymes; D64.9 Anemia, unspecified; L30.4 Erythema intertrigo; R65.20 Severe sepsis without septic shock; I10 Essential (primary) hypertension
CPT/HCPCS: 36600; 70450; 71010; 74176; 76770; 80047; 80048; 80048 91; 80053; 80074; 80076; 81003; 82009; 82010 90; 82272; 82436; 82550; 82550 91; 82553; 82570; 82803; 82948; 83036; 83520 90; 83605; 83690; 83735; 83874 90; 83935; 84100; 84133; 84156; 84300; 84484; 84550; 85025; 85027; 85610; 85730; 86021 90; 86038; 86160; 86162 90; 87040; 87086; 87641; 89190; 93005; 93306; 93971; 94640; 94640 76; 94760; 94799; 97530 GP; 99202; 99281; 99285; C9113; J0610; J0692; J1170; J1644; J1815; J1940; J3475; J3480; J7030; J7050; J7070; J7120; P9045

== ENCOUNTER 2016-03-25 12:02 | Emergency (ER) | payer BC, OTHER ==
[~2016-03-25] VITALS: Ht 160 cm; Wt 73.2 kg
[~2016-03-25 12:02] MED LIST changes: +CLONAZEPAM0.5 MG PO; +KETOCONAZOLE60 GM TP; +LEVEMIR100 UNIT/2 SC; +LUNESTA2 MG PO; +NIZORAL 2% CREA15 GM TP; +OPANA ER10 MG PO; +OPANA IR10 MG PO; +OPANA IR5 MG PO
[2016-03-25 12:41] LABS: POINT-OF-CARE METER ID UU13113702
[2016-03-25 12:57] LABS: HEMATOCRIT 33.1 % (36.0-46.0); MCH 28.5 PG (29.0-34.0); MCHC 33.8 G/DL (30.0-36.0); MCV 84.2 FL (83-99); MEAN PLAT.VOLUME 10.2 uM^3 (9.5-12.4); PLATELET COUNT 242 K/uL (156-360); RBC DIS.WIDTH-CV 16.9 % (11.8-14.6); RBC DIS.WIDTH-SD 50.3 % (39-53); RED BLOOD COUNT 3.93 M/uL (3.80-5.20)
[2016-03-25 13:00] LABS: WHITE BLOOD COUNT 9.1 K/uL (4.1-10.2)
[2016-03-25 13:28] LABS: ALKALINE PHOSPHATASE 99 IU/L (3-129); ANION GAP 17 MEQ/L (2-14); CHLORIDE 100 MEQ/L (99-109); GLUCOSE 240 mg/dL (70-99); SAMPLE HEMOLYSIS CHECK 0; SAMPLE ICTERIC CHECK 0; SAMPLE LIPEMIA CHECK 0; SERUM ETHYL ALCOHOL < 10 mg/dL; UREA NITROGEN (BUN) 10 mg/dL (9-23)
[2016-03-25 13:29] LABS: GFR ESTIMATE (CALCULATED) 55 mL/min/; POTASSIUM 2.6 MEQ/L (3.7-5.4); SODIUM 141 MEQ/L (136-147)
[2016-03-25 13:37] LABS: ADD MIUA? YES; BILIRUBIN NEGATIVE; BLOOD TRACE; COLOR YELLOW ((YELLOW)); GLUCOSE (STRIP) 500; KETONES 40; LEUKOCYTES NEGATIVE; NITRITE NEGATIVE; PH, URINE 6.5 (5-8); PROTEIN (STRIP) 30; SPECIFIC GRAVITY 1.016 (1.000-1.030); UROBILINOGEN 0.2 MG/DL (0.2-1.0)
[2016-03-25 13:47] LABS: AMPHETAMINE NEGATIVE (500 ng/mL); BARBITURATES NEGATIVE (200 ng/mL); BENZODIAZEPINES NEGATIVE (150 ng/mL); COCAINE NEGATIVE (150 ng/mL); INTERNAL CONTROLS VALID? YES; METHADONE NEGATIVE (200 ng/mL); METHAMPHETAMINE NEGATIVE (500 ng/mL); OPIATES (MORPHINE) NEGATIVE (100 ng/mL); OXYCODONE NEGATIVE (100 ng/mL); PHENCYCLIDINE NEGATIVE (25 ng/mL); PROPOXYPHENE NEGATIVE (300 ng/mL); THC CANNABINOIDS NEGATIVE (50 ng/mL); TRICYCLIC ANTIDEPRESSANTS NEGATIVE (300 ng/mL)
[2016-03-25] MEDS ORDERED: K-DUR20 MEQ PO (13:54)
[2016-03-25 14:02] LABS: BACTERIA RARE; CASTS NONE SEEN /LPF; CRYSTALS NONE SEEN; EPITHELIAL CELLS 1+; MUCUS NONE SEEN; RED BLOOD CELLS 0-5 /HPF (0-5); WHITE BLOOD CELLS 0-5 /HPF (0-5)
[2016-03-25 14:41] VITALS: BP 157/99
== END 2016-03-25 14:41 | disposition home or self-care (01) ==
LOC: EME 12:02
PROVIDERS: Emergency Medicine
DX: F32.9 Major depressive disorder, single episode, unspecified (principal); F41.9 Anxiety disorder, unspecified; E87.6 Hypokalemia; E11.9 Type 2 diabetes mellitus without complications; I10 Essential (primary) hypertension; E78.5 Hyperlipidemia, unspecified; K21.9 Gastro-esophageal reflux disease without esophagitis; Z87.891 Personal history of nicotine dependence
CPT/HCPCS: 80053; 81003; 82948; 85027; 90839; 99281; 99284; G0480

== ENCOUNTER 2016-03-27 14:22 | Inpatient (IN) | payer BC, OTHER ==
[~2016-03-27] VITALS: Ht 154.9 cm; Wt 75.3 kg
[~2016-03-27 14:22] MED LIST changes: +K-DUR20 MEQ PO
[2016-03-27 15:09] LABS: HEMATOCRIT 36.4 % (36.0-46.0); MCH 28.9 PG (29.0-34.0); MCHC 34.9 G/DL (30.0-36.0); MCV 82.7 FL (83-99); MEAN PLAT.VOLUME 10.4 uM^3 (9.5-12.4); PLATELET COUNT 259 K/uL (156-360); RBC DIS.WIDTH-CV 17.2 % (11.8-14.6); RBC DIS.WIDTH-SD 49.6 % (39-53); WHITE BLOOD COUNT 9.2 K/uL (4.1-10.2)
[2016-03-27 15:17] LABS: CHLORIDE 100 mEq/L (99-109); POTASSIUM 2.8 mEq/L (3.7-5.4); SODIUM 139 mEq/L (136-147)
[2016-03-27 15:21] LABS: ANION GAP 16 MEQ/L (2-14)
[2016-03-27 15:22] LABS: GLUCOSE 367 mg/dL (70-99)
[2016-03-27 15:23] LABS: GFR ESTIMATE (CALCULATED) 55 mL/min/
[2016-03-27 15:24] LABS: UREA NITROGEN (BUN) 12 mg/dL (9-23)
[2016-03-27 15:27] LABS: POINT-OF-CARE METER ID UU13113800
[2016-03-27 15:29] LABS: TROP-I INTERPRETATION NEGATIVE; TROPONIN-I < 0.01 ng/mL (0.0-0.30)
[2016-03-27 15:47] LABS: ADD MIUA? YES; BILIRUBIN NEGATIVE; BLOOD TRACE; COLOR YELLOW ((YELLOW)); GLUCOSE (STRIP) >=1000; KETONES 15; LEUKOCYTES NEGATIVE; NITRITE NEGATIVE; PH, URINE 6.5 (5-8); PROTEIN (STRIP) 30; SPECIFIC GRAVITY 1.023 (1.000-1.030); UROBILINOGEN 0.2 MG/DL (0.2-1.0)
[2016-03-27 16:06] LABS: RED BLOOD CELLS RARE /HPF (0-5)
[2016-03-27 16:07] LABS: BACTERIA RARE; CASTS NONE SEEN /LPF; CRYSTALS NONE SEEN; EPITHELIAL CELLS 1+; MUCUS NONE SEEN; WHITE BLOOD CELLS RARE /HPF (0-5)
[2016-03-27 17:02] LABS: MAGNESIUM 1.3 mg/dL (1.3-2.7)
[2016-03-27 17:39] LABS: AMPHETAMINES QUANT VALUE 0 NG/ML; BARBITUATES QUANT VALUE 0 NG/ML; BENZODIAZEPINES QUANT VALUE 0 NG/ML; BENZODIAZEPINES, URINE SCREEN Negative (200 ng/mL); MARIJUANA QUANT VALUE 0 NG/ML; OPIATES QUANTITATIVE VALUE 0 NG/ML; PHENCYCLIDINE QUANT VALUE 0 NG/ML
[2016-03-27 18:13] LABS: DIRECT BILIRUBIN 0.1 mg/dL (0.0-0.3)
[2016-03-27 18:14] LABS: ALKALINE PHOSPHATASE 99 IU/L (3-129)
[2016-03-27 21:34] LABS: POINT-OF-CARE METER ID UU13113800
[2016-03-27 23:58] LABS: HDL CHOLESTEROL 70 MG/DL (Desirable>=50); LDL CHOLESTEROL 104 mg/dL (Desirable<100); NON-HDL CHOLESTEROL 161 mg/dL (Desirable<160); TOTAL CHOLESTEROL 231 mg/dL (Desirable<200); TRIGLYCERIDES 284 MG/DL (Normal: <150)
[2016-03-28 01:49] VITALS: BP 124/62
[2016-03-28 05:18] LABS: POINT-OF-CARE METER ID UU14162513
[2016-03-28 07:40] LABS: Estimated Average Glucose 237 mg/dL (70-123); HEMOGLOBIN A1c (GLYCOHEMOGLOB) 9.9 % HGB (Below 5.7)
[2016-03-28 08:16] VITALS: BP 143/70
[2016-03-28] MEDS ORDERED: TRESIBA FL100 UNIT/1 SC (11:14)
[2016-03-28] MEDS ORDERED: METOPROLOL SUCC50 MG PO (11:15)
[2016-03-28] MEDS ORDERED: MIRAPEX0.25 MG PO (11:15)
[2016-03-28] MEDS ORDERED: ROSUVASTATIN CA10 MG PO (11:16)
[2016-03-28] MEDS ORDERED: OTEZLA30 MG PO (11:16)
[2016-03-28] MEDS ORDERED: DEXILANT60 MG PO (11:17)
[2016-03-28] MEDS ORDERED: CYMBALTA60 MG PO (11:17)
[2016-03-28] MEDS ORDERED: GRALISE300 MG PO (11:18)
[2016-03-28] MEDS ORDERED: GABAPENTIN600 MG PO (11:18)
[2016-03-28] MEDS ORDERED: CLONAZEPAM0.5 MG PO (11:19)
[2016-03-28] MEDS ORDERED: LUNESTA2 MG PO (11:19)
[2016-03-28] MEDS ORDERED: NEURONTIN300 MG PO (11:23)
[2016-03-28] MEDS ORDERED: OPANA IR5 MG PO (11:24)
[2016-03-28] MEDS ORDERED: OPANA ER10 MG PO (11:24)
[2016-03-28 12:15] VITALS: BP 128/67
[2016-03-28 12:29] LABS: POINT-OF-CARE METER ID UU14162513
[2016-03-28 16:04] VITALS: BP 157/86
[2016-03-28 17:53] LABS: ANION GAP 9 MEQ/L (2-14); CHLORIDE 105 MEQ/L (99-109); GFR ESTIMATE (CALCULATED) > 59 mL/min/; GLUCOSE 188 mg/dL (70-99); SAMPLE HEMOLYSIS CHECK 0; SAMPLE ICTERIC CHECK 0; SAMPLE LIPEMIA CHECK 0; SODIUM 139 MEQ/L (136-147); UREA NITROGEN (BUN) 10 mg/dL (9-23)
[2016-03-28 17:55] LABS: POTASSIUM 4.1 MEQ/L (3.7-5.4)
[2016-03-28 20:12] VITALS: BP 172/89
[2016-03-28 20:30] VITALS: BP 121/59
[2016-03-29 00:27] VITALS: BP 124/57
[2016-03-29 03:43] LABS: POINT-OF-CARE METER ID UU13113700
[2016-03-29 04:12] VITALS: BP 126/79
[2016-03-29 05:49] LABS: HEMATOCRIT 33.6 % (36.0-46.0); MCH 28.5 PG (29.0-34.0); MCHC 33.6 G/DL (30.0-36.0); MCV 84.8 FL (83-99); RBC DIS.WIDTH-CV 17.9 % (11.8-14.6); RED BLOOD COUNT 3.96 M/uL (3.80-5.20)
[2016-03-29 06:14] LABS: WHITE BLOOD COUNT 5.7 K/uL (4.1-10.2)
[2016-03-29 06:28] LABS: HEMATOLOGY COMMENT 1 UNABLE TO REPORT
[2016-03-29 07:00] LABS: ANION GAP 13 MEQ/L (2-14); CHLORIDE 107 MEQ/L (99-109); GFR ESTIMATE (CALCULATED) > 59 mL/min/; GLUCOSE 182 mg/dL (70-99); POTASSIUM 3.9 MEQ/L (3.7-5.4); SAMPLE HEMOLYSIS CHECK 0; SAMPLE ICTERIC CHECK 0; SAMPLE LIPEMIA CHECK 0; SODIUM 143 MEQ/L (136-147); UREA NITROGEN (BUN) 9 mg/dL (9-23)
[2016-03-29 08:17] VITALS: BP 143/67
[2016-03-29 09:00] VITALS: BP 127/74
[2016-03-29 12:25] VITALS: BP 137/72
[2016-03-29 12:45] LABS: POINT-OF-CARE METER ID UU13113831
[2016-03-29 17:14] VITALS: BP 131/69
== END 2016-03-29 20:37 | DRG 948 ==
LOC: EME 14:22 → EDOF 22:07 → 5WEST 22:07 → EDOF 22:07 → 5WEST 03-28 01:34
PROVIDERS: Hospitalist; Internal Medicine; Physician Assistant
DX: R41.0 Disorientation, unspecified (principal); F30.9 Manic episode, unspecified; E11.65 Type 2 diabetes mellitus with hyperglycemia; E87.6 Hypokalemia; E11.43 Type 2 diabetes mellitus with diabetic autonomic (poly)neuropathy; K31.84 Gastroparesis; I10 Essential (primary) hypertension; E78.5 Hyperlipidemia, unspecified; J45.909 Unspecified asthma, uncomplicated; K21.9 Gastro-esophageal reflux disease without esophagitis; E28.2 Polycystic ovarian syndrome; H91.90 Unspecified hearing loss, unspecified ear; E66.9 Obesity, unspecified; Z91.19 Patient's noncompliance with other medical treatment and regimen; Z79.4 Long term (current) use of insulin; Z87.891 Personal history of nicotine dependence; Z68.31 Body mass index [BMI] 31.0-31.9, adult
CPT/HCPCS: 70450; 71020; 80048; 80061; 80076; 81003; 82009; 82140; 82948; 83036; 83605; 83735; 84439; 84443; 84484; 85027; 87493; 87506; 93005; 99281; 99285; G0378; J1650; J1815; J2060; J3480; J7030

== ENCOUNTER 2016-03-29 18:04 | Inpatient (IN) | payer OTHER ==
[~2016-03-29] VITALS: Ht 154.9 cm; Wt 75.3 kg
[~2016-03-29 18:04] MED LIST changes: +GRALISE300 MG PO; +ROSUVASTATIN CA10 MG PO; +TRESIBA FL100 UNIT/1 SC
[2016-03-30 03:46] LABS: POINT-OF-CARE METER ID UU13113830
[2016-03-30 06:42] LABS: POINT-OF-CARE METER ID UU13113830
[2016-03-30 07:46] VITALS: BP 131/70
[2016-03-30 08:17] LABS: POINT-OF-CARE METER ID UU13113830
[2016-03-30 10:10] LABS: POINT-OF-CARE METER ID UU13113830
[2016-03-30 15:27] VITALS: BP 132/70
[2016-03-30 16:40] LABS: POINT-OF-CARE METER ID UU13113830
[2016-03-30 21:50] LABS: POINT-OF-CARE METER ID UU13113830; POINT-OF-CARE USER ID ENVTLS63
[2016-03-31 06:02] LABS: POINT-OF-CARE METER ID UU13113830; POINT-OF-CARE USER ID ENVTLS63
[2016-03-31 07:44] VITALS: BP 127/58
[2016-03-31] MEDS ORDERED: ASPIR-LOW81 MG PO (10:31)
[2016-03-31] MEDS ORDERED: QUETIAPINE FUM200 MG PO (10:33)
[2016-03-31] MEDS ORDERED: NOVOLOG PE100 UNITS/ SC (10:33)
[2016-03-31] MEDS ORDERED: LEVEMIR100 UNIT/2 SC (10:33)
[2016-03-31 11:42] LABS: POINT-OF-CARE METER ID UU13113830
== END 2016-03-31 11:50 | disposition home or self-care (01) | DRG 885 ==
LOC: 1WEST 18:04
PROVIDERS: Psychiatry & Neurology Psychiatry
DX: F31.9 Bipolar disorder, unspecified (principal); R41.0 Disorientation, unspecified; E11.9 Type 2 diabetes mellitus without complications; H91.93 Unspecified hearing loss, bilateral; G89.29 Other chronic pain; M54.9 Dorsalgia, unspecified; M79.609 Pain in unspecified limb; G47.00 Insomnia, unspecified; F41.9 Anxiety disorder, unspecified; Z79.4 Long term (current) use of insulin
CPT/HCPCS: 82948; 97165 GO; J1815